=== PATIENT | female | born 1985 | race Hispanic/Latino ===

== ENCOUNTER 2022-11-10 11:14 | Emergency (ER) | payer OTHER, SELFPAY ==
[2022-11-10 11:16] VITALS: BP 170/112; PULSE 97; RESP 14; TEMP 36.8; O2SAT 97; BMI 52.9
--- NOTE | 2022-11-10 11:34 | RAD_ITS ---
EXAM: XR LEFT ANKLE COMPLETE, 3 OR MORE VIEWS CLINICAL INDICATION: Injury/Pain TECHNIQUE: Frontal, lateral and oblique views of the left ankle. This report was created using [employer] report generation technology. COMPARISON: None. FINDINGS: BONES/JOINTS: Transverse fracture of the left lateral malleolus. Preservation of the joint space. No sclerotic or destructive changes observed. SOFT TISSUES: Soft tissue swelling overlying the lateral and medial malleoli. No radiopaque foreign body. RAD/Ankle min 3 Views IMPRESSION: Acute transverse fracture of the left lateral malleolus. Electronically Signed: Jaime Ledbetter MD at 12:06 EST ,
--- NOTE | 2022-11-10 11:34 | ED.VIS.LOWEX ---
HPI History of Present Illness Chief Complaint: Lower Extremity Injury Detail of Chief Complaint: Injury left ankle due to fall Informant: patient Occured/Mechanism Mechanism/Context: Yes fall and Yes same level fall Onset/Context/Timing Onset: Yesterday Context: Sudden Onset Timing: Continuous Quality of Pain: Dull and Aching Location: Left ankle Current Severity: Mild Maximum Severity: Moderate Worsened by: Weightbearing and movement Relieved by: Nothing Associated Symptoms Associated Symptoms: Negative for Parasthesia, Weakness or Loss of Funtion Narrative Narrative: She has hadPatient is a 37-year-old woman who presents with injury to her left ankle due to fall. She is not certain exactly how she injured it. Pain since a fall. She had increased difficulty bearing weight. She has not taken anything for the pain. She denies prior injury. Denies paresthesia, anesthesia or motor weakness. She denies history of ulcers, hypertension, diabetes or kidney disease. Tetanus Immunization: 5-10 years Prior similar symptoms: No Recent Illness/Hospitalization: No PFSH PFSH Home Medications hydrocodone-acetaminophen 5-325mg 5mg-325mg 1 tab PO Q6H PRN PRN Pain 3 days #10 TABLETS 11/10/22 [Rx Last Taken Unknown] Social History Smoking Status: Never smoker ROS ROS ED Constitutional Constitutional ED: Denies chills, fever(s), subjective, sweats or weight loss Integumentary Denies Abrasions or rash Neurologic Neurologic: Denies paresthesias or weakness Hematologic/Lymphatic Hematologic/Lymphatic: Denies easy bleeding or easy bruising EXAM Physical Exam Const Vital Signs: 11/10/22 11:16 Temperature 98.2 F Temperature Source Temporal Pulse Rate 97 Respiratory Rate 14 Blood Pressure 170/112 H Blood Pressure Mean 131 Pulse Ox 97 Oxygen Delivery Method Room Air Positive well nourished, well developed and obese; Negative for cachectic, contractures or unkempt General Appearance ED: well developed; Negative for unkempt, cachectic or contractures Nutritional Appearance: obese; Negative for cachectic HEENT Reports moist mucous membranes normocephalic and atraumatic Eyes Eyes Narrative: Pupils equal round reactive. Extract muscle intact. Sclera is anicteric Neck full ROM Resp normal respiratory effort Cardio regular rate and regular rhythm Extremity Negative for normal to inspection Extremity Narrative: There is swelling to left ankle with pain ovation over the lateral and medial malleolus. There is no lax with drawer testing. There is no pain the patient at the base of the fifth metatarsal. DP and PT pulse are palpable. There is no pain the patient over the fibular head. Neuro oriented x3, CN's II-XII intact bilaterally and moves all extremities Sensorium / Orientation: alert Psych mental status grossly normal Appearance: Negative for unkempt Skin no wounds Lesions: no lesions Rashes: no rashes MDM MDM MDM Narrative Medical decision making narrative: Based on the Brule ankle rule imaging is required. Three-view x-ray was obtained. Patient was medicated with p.o. meds. Differential is sprain versus fracture. Radiography X-Ray: - (Three-view x-ray left ankle reveals an oblique fracture at the joint line involving the lateral malleolus. There is no widening the mortise. This would be a Santoyo B type distal fibular fracture. Patient was referred to Dr. Grant Berrios.) Diagnostic Testing: Clinical Impression(s) from Imaging Studies Ankle X-Ray 11/10/22 11:34 IMPRESSION: Acute transverse fracture of the left lateral malleolus. Electronically Signed: Jaime Ledbetter MD at 12:06 EST Reading Location ID and State: [address] [place] [address] , Service support , Three-view x-ray reveals an oblique fracture lateral malleolus at the joint line, Santoyo type B. Treatment and Re-Evaluation Narrative: Patient was informed she has a fracture. Will place in a posterior plaster splint. Patient be nonweightbearing. Procedures Lower Extremity Splints Lower Extremity Splint: Plaster and - (Posterior short leg) Splint Fabrication: Fabricated Location: Right Discharge Plan Triage Chief Complaint: Lower Extremity Injury ED Provider: Patel Kumar Dx/Rx/DC Orders Clinical Impression: Fracture of ankle, lateral malleolus, left, closed Prescriptions: New hydrocodone-acetaminophen [hydrocodone-acetaminophen] 5-325 mg tablet 1 tab PO Q6H PRN PRN (Reason: Pain) 3 Days Qty: 10 0RF Primary Care Provider: Care Physician,No Primary Referrals: Grant Berrios DPM [Med Staff - Active Staff] - 5-7 Days Care Physician,No Primary [Primary Care Provider] - Activity Restrictions/Additional Instructions: 1. Keep your foot elevated, your toes above your nose 2. Apply ice to splint 6-10 times a day 3. You must keep the splint absolutely clean and dry 4. You are not to put any weight on your left foot Disposition Disposition: Home, Self Care
[2022-11-10] MEDS: Naproxen 500 MG Tablet PO (11:39)
[2022-11-10] MEDS: HYDROcodone Bitartrate/Apap 5/325 Tablet PO (11:39)
== END 2022-11-10 13:09 | disposition home or self-care (01) ==
PROVIDERS: Emergency Provider Emergency Medicine; Visit Provider Emergency Medicine
DX: S82.62XA Displaced fracture of lateral malleolus of left fibula, initial encounter for closed fracture (principal); W18.30XA Fall on same level, unspecified, initial encounter; E66.9 Obesity, unspecified
CPT/HCPCS: 29515; 73610; 99284